=== PATIENT | female | born 1970 | race Caucasian/White ===

== ENCOUNTER 2020-12-15 19:29 | Observation (INO) ==
[2020-12-15 19:54] VITALS: BMI 43.0
[2020-12-15] MEDS ORDERED: TORADOL 15 MG VIAL IVP ONE (20:08)
--- NOTE | 2020-12-15 20:09 | DR.FBACK ---
HPI Time Seen Time Seen by Provider: 12/15/20 19:43 PCP Primary Care Physician: CHAN HPI Comment HPI Comment: 50 yo f w/ pmh htn presents w/ back pain x 4 days. States during sex she rotated her torso suddenly and since that time has been having lower lack pain, right sided, radiating to posterior thigh, sharp, constant, worse w/ rom of torso, min improvement with motrin. Seen at outside ED and had plain films which reportedly showed degenerative changes of the spine but no fx. Presents her for percistent pain. States she is now weak in her right leg. + urinary incontinance. No stool incontinance. No saddle parestesia. No f/c. No hx of ivda. Complaint Chief Complaint:: PT STATES" I WAS HAVING SEX ON SATURDAY AND I HURT MY BACK. I WENT TO MY PCP ON SATURDAY AND TO THE CHIROPACTOR SATURDAY AND TODAY I HAVE NOT SLEPT MORE THAN 4 HOURS IN THE LAST 3 DAYS. MY LEGS FEEL LIKE JELLO" Reviewed Nurses Notes Review: Yes Source History Provided: Patient Mode of Arrival Mode of Arrival: Ambulatory Timing Onset of Chief Complaint: 12/15/20 PMH PMH Past Medical History: Yes Past Medical History: Anxiety, Hypertension and Hypothyroidism Past Surgical History: Yes Surgical History: , Cholecystectomy and Hysterectomy Family History History of Family Medical Conditions: No Family Medical History: PR and Coronary Artery Disease Social History Type of Tobacco Use: None Does any household member use tobacco: No Alcohol Use: None Do you use any recreational Drugs:: No Lives With: Family Lives Where: Home Infectious screening In the last 2 months have you had wt loss of >10#?: NO Have you had fever, night sweats or hemotysis?: No Have you traveled outside the country in the last 6 months?: No Isolation: Standard ROS Review of Systems Constitutional: No Symptoms Reported Eyes: No Symptoms Reported ENTM: No Symptoms Reported Respiratoy: No Symptoms Reported Cardiovascular: No Symptoms Reported Gastrointestinal/Abdominal: No Symptoms Reported Genitourinary: No Symptoms Reported Neurological: No Symptoms Reported Musculoskeletal: Back Pain Integumentary: No Symptoms Reported Hematologic/Lymphatic: No Symptoms Reported Endocrine: No Symptoms Reported Psychiatric: No Symptoms Reported All Other Systems: Reviewed and Negative PE Vitals Vital Signs: Temp Pulse Resp BP BP Pulse Ox 12/15/20 20:34 18 12/15/20 20:33 167/88 12/15/20 19:34 36.4 C 90 18 205/98 97 11/26/20 18:30 142/65 General Limitations: No Limitations General Appearance: Alert and In No Apparent Distress Head Head Exam: Normal Inspection Eyes Eye exam: Normal Appearance ENT ENT Exam: Normal Exam Chest Chest Inspection: Normal Inspection Respiratory Respiratory Exam: Normal Lung Sounds Bilat Cardiovascular Cardiovascular Exam: Regular Rate and Normal Rhythm Abdominal Exam Abdominal Exam: Normal Inspection, Normal Bowel Sounds and Soft Genitourinary External Exam: Female: Deferred : Speculum Exam (Female): Deferred : Bimanual Exam (female): Deferred Extremities Extremities Exam: Normal Inspection Back Back Exam: Normal Inspection Neurological Neurological Exam: Alert and Oriented X3 Psychiatric Psychiatric Exam: Normal Affect and Normal Mood Skin Skin Exam: Warm, Dry, Intact and Normal Color Other Exam Other Exam: back: diffuse right sided paraspinal lumbar pain, no bony tenderness. 5/5 strength t/o LLE. slight weakness with knee flexion on right but extension strength normal. Sensation intact t/o bilateral lower extremities. 3+ patellar reflexes bilat. MDM Differential Diagnosis Differential Diagnosis: DJD, Fracture, Musculoskeletal Pain and Strain COURSE Treatment Treatment: 50 yo f w/ recent lower back injury presents w/ acute worsening of her back pain. 3+ patellar reflexes bilaterally. Faintly decreased strength in RLE. Normal sensation. Concerned she is complaining of a single episode of urinary incontinance today. No saddle anestesia on history. Given dose of decadron by pcp earlier this week, additional dose given this pm. Pain improved after alagesics. Will admit to observation for pain control and urgent mri in AM. 2209: discussed all details of case with Dr Gupta whom agrees with plan and will admit to observation for AM MRI of lumbar spine. Education/Counseling Education/Counseling: Patient and Family Educated On: Treatment, Diagnosis, Prognosis and Needs for Follow Up Opioid Opioid Risk Tool Age (Felice box if 16-45): No History of Preadolescent Sexual Abuse: No Total: 0 Total Score Risk Category: Low Risk Copyright: Davion YBARRA predicting aberrant behaviors Diagnosis Discharge Problem: Intractable low back pain Instructions Forms: Patient Portal Social Distancing
[2020-12-15] MEDS ORDERED: ATIVAN INJ 2 MG VIAL IVP ONE (20:19)
[2020-12-15] MEDS ORDERED: TORADOL 15 MG VIAL ONE (20:23)
[2020-12-15] MEDS ORDERED: ATIVAN INJ 2 MG VIAL ONE (20:24)
[2020-12-15] MEDS ORDERED: DECADRON INJ IVP ONE (20:29)
[2020-12-15] MEDS ORDERED: DECADRON INJ ONE (20:33)
[2020-12-15] MEDS: DECADRON INJ IVP ONE ×2 (20:40→20:42)
[2020-12-16] MEDS ORDERED: NORCO 7.5/325 MG TAB ONE (00:42)
[2020-12-16] MEDS: NORCO 7.5/325 MG TAB PO PRN ×4 (01:19→21:20)
[2020-12-16] MEDS: RESTORIL CAP 15 MG PO PRN ×2 (01:19→20:50)
[2020-12-16] MEDS ORDERED: DECADRON INJ IVP ONE (07:00)
[2020-12-16] MEDS ORDERED: MOTRIN TAB 800 MG PO PRN ×2 (08:52→10:10)
[2020-12-16] MEDS ORDERED: PriLOSEC PO SCH (09:00)
[2020-12-16 09:38] LABS: BASOPHILS # (AUTO) 0.1 X10^3/uL (0.0-0.1); BASOPHILS % (AUTO) 0.5 % (0.2-1.0); HEMATOCRIT 41.3 % (36.0-47.0); HEMOGLOBIN 14.2 g/dL (12.0-16.0); LYMPHOCYTES # (AUTO) 1.3 X10^3/uL (1.3-2.9); LYMPHOCYTES % (AUTO) 11.7 % (21.0-51.0); MEAN CORPUSCULAR HEMOGLOBIN 29.2 pg (27.0-34.0); MEAN CORPUSCULAR HGB CONC 34.3 g/dL (33.0-35.0); MEAN PLATELET VOLUME 7.8 fL (7.4-11.0); MONOCYTES # (AUTO) 0.2 x10^3/uL (0.3-0.8); MONOCYTES % (AUTO) 1.5 % (0.0-13.0); NEUTROPHILS # (AUTO) 9.5 x10^3/uL (2.2-4.8); NEUTROPHILS % (AUTO) 86.3 % (42.0-75.0); PLATELET COUNT 266 X10^3/uL (150.0-450.0); RED BLOOD COUNT 4.85 X10^6/uL (3.5-5.4); RED CELL DISTRIBUTION WIDTH 14.4 % (11.6-16.5)
[2020-12-16] MEDS: BUSPAR PO SCH ×3 (09:52→22:19)
[2020-12-16] MEDS: EFFEXOR XR 150 MG CAP 24-HR PO SCH (09:53)
[2020-12-16] MEDS: ZESTRIL TAB 10 MG PO SCH (09:53)
[2020-12-16] MEDS: SYNTHROID 175 mcg TAB PO SCH (09:53)
[2020-12-16 09:54] LABS: ALANINE AMINOTRANSFERASE 30 Units/L (12-78); ALKALINE PHOSPHATASE 79 Units/L (46-116); ASPARTATE AMINO TRANSFERASE 15 Units/L (15-37); BLOOD UREA NITROGEN 12 mg/dL (7-18); CALCIUM 9.2 mg/dL (8.5-10.1); CARBON DIOXIDE 26.1 mmol/L (21-32); CHLORIDE 103 mmol/L (98-107); COR NA(FOR HYPERGLY) 140 mmol/L (136-145); CREATININE 0.72 mg/dL (0.55-1.02); SODIUM 139 mmol/L (136-145); TOTAL PROTEIN 7.5 g/dL (6.4-8.2); eGFR NON BLACK RACES > 60 (>60)
[2020-12-16] MEDS ORDERED: VALIUM INJ IVP ONE (10:03)
[2020-12-16] MEDS ORDERED: NS 100 ML IV 100 ML IV ONE (10:17)
--- NOTE | 2020-12-16 10:53 | DR.H&P ---
H&P - History & Physical for Day of: H&P Date: 12/15/20 - Chief Complaint Chief Complaint: SEVERE LOWER BACK PAIN - History of Present Illness History of Present Illness: IS A 50 YEAR OLD PATIENT OF [facility]. SHE PRESENTED TO THE ER WITH COMPLAINTS OF SEVERE BACK PAIN THAT STARTED FOUR DAYS PRIOR TO ARRIVAL. SHE REPORTS ROTATING HER TORSO SUDDENLY WHILE HAVING SEX. SHE REPORTS THAT SINCE THEN, SHE HAS HAD SEVERE RIGHT SIDED LOWER BACK PAIN WITH RADIATION TO THE POSTERIOR THIGH. SHE ALSO REPORTS SEVERE WEAKNESS TO RIGHT LOWER EXTREMITY AND URINARY INCONTINENCE. SHE DENIES STOOL INCONTINENCE OR SADDLE PARESTHESIA. PAIN IS DESCRIBED CONSTANT, SHARP, AND WAS RATED AN 8/10 ON ARRIVAL TO THE ED. SHE ADMITS TO MILD IMPROVEMENT AFTER TAKING MOTRIN. SHE ALSO REPORTS NOT SLEEPING MORE THAN 4 HOURS IN THE LAST FOUR DAYS SINCE INJURY. PATIENT DOES ADMIT THAT A LUMBAR XRAY IN THE PAST, PRIOR TO INJURY, REVEALED DEGENERATIVE DISC DIDEASE. SHE DID SEE HER PCP EARLIER IN THE WEEK AND WAS GIVEN A DOSE OF DECADRON IM AND ORAL ANALGESICS. EXAMINATION REVEALED DIFFUSE RIGHT SIDED PARASPINOUS LUMBAR PAIN. SHE HAS 5/5 STRENGTH TO LLE BUT HAS WEAKNESS WITH KNEE FLEXION ON THE RIGHT LEG. EXTENSION STRENGTH IS NORMAL. 3+ PATELLAR REFLEXES BILATERALLY. NORMAL SENSATION IN LOWER EXTREMITIES NOTED. ON ARRIVAL TO THE ER, VITALS WERE 97.6-90-18-97%-205/98. SHE WAS GIVEN TORADOL 15MG IV X 1 DOSE, ATIVAN 1MG IV X 1 DOSE, AND DECADRON 4MG IV X 1 DOSE. SHE DENIED IMPROVEMENT IN SYMPTOMS AFTER ADMINISTRATION OF MEDICATIONS. SHE WAS ADMITTED TO THE HOSPITAL FOR FURTHER EVALUATION AND TREATMENT OF INTRACTABLE LOWER BACK PAIN. SHE WAS STARTED ON TORADOL 30MG IV Q6H, VALIUM 5MG PO BID, PEPCID 20MG IV BID, PROTONIX 40MG IV BID, LOVENOX 30MG SC BID, NORCO 7.5/325MG PO Q6H PRN, AND HER HOME MEDICATIONS WERE RESUMED. WE PLAN TO OBTAIN A LUMBAR SPINE MRI WITHOUT CONTRAST. PATIENT DID TEST POSITIVE FOR COVID-19 PRIOR TO ADMISSION. PATIENT ADMITS TO HAVING COVID-19 BACK IN SEPTEMBER. SHE HAS NO RESPIRATORY SYMPTOMS AT THIS TIME. WE WILL ALSO COLLECT A URINALYSIS. OTHERWISE, WE WILL FOLLOW UP WITH AM LABS AND CONTINUE TO MONITOR. TIME SPENT ON CLINICAL ASSESSMENT, REVIEWING LABS AND IMAGING, DECISION MAKING, AND DOCUMENTATION GREATER THAN 75 MINUTES. - Past Medical History Past Medical History: Anxiety, Depression, Hypertension, Hypothyroidism - Past Surgical History Surgical History: Cholecystectomy - Family History Family Medical History: [place], Coronary Artery Disease - Social History Type of Tobacco Use: None Does any household member use tobacco: No Alcohol Use: None - Medications Home Medications: No Known Drug Allergies [NKDA] Allergy (Verified 12/15/20 20:38) CONTINUE taking the following medications buspirone 10 mg PO TID 12/16/20 [History] cariprazine [Vraylar] 1.5 mg PO DAILYHS 12/16/20 [History] hydrochlorothiazide 25 mg PO DAILY 12/16/20 [History] ibuprofen 800 mg PO Q8-10H 12/16/20 [History] levothyroxine 175 mcg PO DAILY 12/16/20 [History] lisinopril 10 mg PO DAILY 12/16/20 [History] omeprazole 20 mg PO DAILY 12/16/20 [History] topiramate [Trokendi XR] 50 mg PO DAILY 12/16/20 [History] venlafaxine 150 mg PO DAILY 12/16/20 [History] - Review of Systems Constitutional: Weakness Eyes: No Symptoms Reported ENT: No Symptoms Reported Respiratory: No Symptoms Reported Cardiovascular: No Symptoms Reported Gastrointestinal: No Symptoms Reported Genitourinary: No Symptoms Reported Musculoskeletal: See HPI, Back Pain Skin: No Symptoms Reported Neurological: Weakness - Physical Exam Vital Signs: Temperature 97.9 F Pulse Rate [Left Radial] 84 Pulse Rate 86 Respiratory Rate 24 Blood Pressure [Left Arm] 136/70 Blood Pressure 109/59 O2 Sat by Pulse Oximetry 94 Oriented: Normal Eyes: Normal Ear: Normal Nose: Normal Throat: Normal Respiratory: Clear Throughout Cardiovascular: Normal : Normal Auscultation: Bowel Sounds: Normal Palpation: Normal Tenderness: Normal Skin: Normal Musculoskeletal: Right, Back:Lumbar, Sensory Deficit Psychiatric: Normal Mood Description: Calm Affect: Normal Speech Pattern: Clear - Assessment/Plan (1) Intractable low back pain Status: Acute Plan: ADMIT, LUMBAR SPINE MRI, TORADOL 30MG IV Q6H, VALIUM 5MG PO BID, PEPCID 20MG IV BID, PROTONIX 40MG IV BID, LOVENOX 30MG SC BID, NORCO 7.5/325MG PO Q6H PRN, RESUME HOME MEDICATIONS (2) COVID-19 Status: Acute (3) HTN (hypertension) Qualifiers: Hypertension type: essential hypertension Qualified Code(s): I10 - Essential (primary) hypertension Status: Chronic - Allergies Allergies/Adverse Reactions: Allergies Allergy/AdvReac Type Severity Reaction Status Date / Time No Known Drug Allergies Allergy Verified 12/15/20 20:38 [NKDA]
[2020-12-16] MEDS: LOVENOX INJ 30 MG SYR SC SCH ×2 (10:59→20:49)
[2020-12-16] MEDS: PROTONIX INJ 40 MG VIAL IVP SCH ×2 (11:00→20:48)
[2020-12-16] MEDS ORDERED: MOTRIN TAB 800 MG PO SCH (11:00)
[2020-12-16] MEDS: PEPCID 20 MG IV PREMIX* 20 MG/50 ML BAG IV SCH ×2 (11:00→20:48)
[2020-12-16] MEDS ORDERED: VALIUM INJ IM NR (11:00)
--- NOTE | 2020-12-16 11:58 | RAD ---
HISTORYINTRACTABLE LOWER BACK PAINSTUDYX-ray lumbar spine five viewsCOMPARISONNoneFINDINGSNo scoliosis. L5 pars defects are seen with slight grade 1 anterolisthesis of L5 on S1. Mild arthritic facet changes are seen in the lower lumbar spine. No compression fracture or disc space narrowing is seen.IMPRESSIONL5 pars defects and minimal L5-S1 spondylolisthesis.Electronically signed by: Nba Mccarthy (Dec 16, 2020 11:56:31)
[2020-12-16] MEDS: TORADOL 30 MG VIAL IVP SCH ×3 (12:03→22:19)
[2020-12-16 12:22] LABS: BILIRUBIN,URINE NEGATIVE (NEGATIVE); BLOOD/HEMOGLOBIN,URINE NEGATIVE (NEGATIVE); GLUCOSE, URINE NEGATIVE (NEGATIVE); KETONES,URINE 2+ (NEGATIVE); LEUKOCYTE ESTERASE ,URINE NEGATIVE (NEGATIVE); NITRITES,URINE NEGATIVE (NEGATIVE); PROTEIN,URINE NEGATIVE (NEGATIVE); UROBILINOGEN,URINE NORMAL (NORMAL)
[2020-12-16 12:24] LABS: APPEARANCE,URINE HAZY (CLEAR); COLOR,URINE YELLOW (YELLOW)
[2020-12-16] MEDS: [UNRECOGNIZED DRUG - OTHER] PO SCH (14:00)
[2020-12-16] MEDS: TOPIRAMATE 50 MG PO SCH (14:00)
[2020-12-16] MEDS: VALIUM PO SCH (14:54)
--- NOTE | 2020-12-16 16:27 | MRI ---
HISTORYLOW BACK PAIN, R/O CAUDA EQUINASTUDYMRI L SPINE W/O CONTRASTCOMPARISONLumbar spine series dated same day.TECHNIQUEMultiplanar multisequence MRI of the lumbar spine was obtained utilizing standard departmental protocol.FINDINGSQuestion of bilateral L5 pars defects without anterior listhesis. No acute fracture. 2.3 cm L3 vertebral body hemangioma. Remaining bone marrow signal is unremarkable. No significant disc desiccation or disc height loss. 2.3 cm benign-appearing cystic lesion within the visualized left lower pelvis (series 701, image 40). This may represent a simple ovarian cyst. Remaining soft tissue structures are unremarkable. The conus medullaris terminates L1-L2.T12--L1: No significant disc bulge, neural foraminal narrowing, or spinal canal stenosis.L1 -- L2: No significant disc bulge, neural foraminal narrowing, or spinal canal stenosis.L2 -- L3: No significant disc bulge, neural foraminal narrowing, or spinal canal stenosis.L3 -- L4: No significant disc bulge, neural foraminal narrowing, or spinal canal stenosis.L4 -- L5: Broad-based disc bulge that extends into the lateral recesses with associated severe facet/ligamentum flavum hypertrophy causing bilateral [id number] neural foraminal narrowing. No significant spinal canal stenosis.L5 -- S1:Broad-based disc bulge that extends into the lateral recesses with associated severe facet/ligamentum flavum hypertrophy causing mild bilateral neural foraminal narrowing. No significant spinal canal stenosis.IMPRESSIONOne. Multilevel degenerative changes of the lumbar spine as above. No MRI evidence to suggest cauda equina.Two. Question of a 2.3 cm left ovarian simple appearing cyst. Recommend dedicated pelvic ultrasound on outpatient basis for further characterization.Electronically signed by: AUREA WHITING (Dec 16, 2020 16:25:02)
[2020-12-16] MEDS: PATIENT'S HOME MEDICATION (Cariprazine [Vraylar] 1.5 mg capsule) PO SCH (20:48)
[2020-12-17] MEDS: TORADOL 30 MG VIAL IVP SCH ×4 (04:47→23:35)
[2020-12-17 04:54] LABS: BASOPHILS % (AUTO) 0.4 % (0.2-1.0); EOSINOPHILS % (AUTO) 0.2 % (0.9-2.9); HEMATOCRIT 38.3 % (36.0-47.0); HEMOGLOBIN 12.9 g/dL (12.0-16.0); LYMPHOCYTES # (AUTO) 2.2 X10^3/uL (1.3-2.9); LYMPHOCYTES % (AUTO) 17.1 % (21.0-51.0); MEAN CORPUSCULAR HEMOGLOBIN 28.9 pg (27.0-34.0); MEAN CORPUSCULAR HGB CONC 33.8 g/dL (33.0-35.0); MEAN CORPUSCULAR VOLUME 85.5 fL (80.0-100.0); MEAN PLATELET VOLUME 7.6 fL (7.4-11.0); MONOCYTES % (AUTO) 7.8 % (0.0-13.0); NEUTROPHILS # (AUTO) 9.6 x10^3/uL (2.2-4.8); NEUTROPHILS % (AUTO) 74.5 % (42.0-75.0); PLATELET COUNT 269 X10^3/uL (150.0-450.0); RED BLOOD COUNT 4.48 X10^6/uL (3.5-5.4); RED CELL DISTRIBUTION WIDTH 14.4 % (11.6-16.5); WHITE BLOOD COUNT 12.9 X10^3/uL (3.6-10.0)
[2020-12-17 05:00] LABS: ALANINE AMINOTRANSFERASE 28 Units/L (12-78); ALBUMIN 3.2 g/dL (3.4-5.0); ALKALINE PHOSPHATASE 68 Units/L (46-116); ASPARTATE AMINO TRANSFERASE 13 Units/L (15-37); BLOOD UREA NITROGEN 17 mg/dL (7-18); CALCIUM 8.6 mg/dL (8.5-10.1); CARBON DIOXIDE 29.6 mmol/L (21-32); CHLORIDE 106 mmol/L (98-107); COR CA(FOR HYPOALB) 9.2 mg/dL (8.5-10.1); COR NA(FOR HYPERGLY) 141 mmol/L (136-145); CREATININE 0.84 mg/dL (0.55-1.02); SODIUM 141 mmol/L (136-145); TOTAL PROTEIN 6.1 g/dL (6.4-8.2); eGFR NON BLACK RACES > 60 (>60)
[2020-12-17] MEDS: BUSPAR PO SCH ×3 (05:16→21:32)
[2020-12-17] MEDS: VALIUM PO SCH ×2 (05:16→13:55)
[2020-12-17] MEDS: NORCO 7.5/325 MG TAB PO PRN (07:50)
[2020-12-17] MEDS: TOPIRAMATE 50 MG PO SCH (08:13)
[2020-12-17] MEDS: [UNRECOGNIZED DRUG - OTHER] PO SCH (08:13)
[2020-12-17] MEDS: LOVENOX INJ 30 MG SYR SC SCH ×2 (08:14→20:18)
[2020-12-17] MEDS: EFFEXOR XR 150 MG CAP 24-HR PO SCH (08:14)
[2020-12-17] MEDS: ZESTRIL TAB 10 MG PO SCH (08:14)
[2020-12-17] MEDS: PEPCID 20 MG IV PREMIX* 20 MG/50 ML BAG IV SCH ×2 (08:14→20:19)
[2020-12-17] MEDS: PROTONIX INJ 40 MG VIAL IVP SCH ×2 (08:14→20:19)
[2020-12-17] MEDS: SYNTHROID 175 mcg TAB PO SCH (08:16)
[2020-12-17] MEDS ORDERED: SOLU-Medrol 125 MG VIAL IVP ONE (09:53)
--- NOTE | 2020-12-17 09:58 | PCM.PROG ---
Progress Note Progress Note for Day of Date of Exam: 12/17/20 Subjective Subjective: Pt is a 50 year old female admitted for intractable low back pain. This morning patient reports some improvement in her symptoms, she states the hydrocodone has been helping but does make her feel sleepy. Pain returns when medication wears off. Strength has improved in right lower extremity. Pt had MRI Lumbar yesterday that revealed: 1.Multilevel degenerative changes of the lumbar spine as above. No MRI evidence to suggest cauda equina. 2.Question of a 2.3 cm left ovarian simple appearing cyst. Recommend dedicated pelvic ultrasound on outpatient basis for further characterization. Labs: Wbc 12.9, Hgb 12.9, Plt 269, Na 141, K 3.8, Creatinine 0.84, Glucose 116. Discussed results with kieran gomez. She will need to see her pcp after discharge for referral to neurosurgery outpatient and based on MRI findings of ovarian cyst will also need pelvic u/s outpatient. Will give IV Solumedrol 80mg x1 today. Decrease norco to 5mg Q4H prn. Add gabapentin at night. Encourage out of bed and ambulation as tolerated. Past Medical Family Social History Past Med/Fam/Surg Hx: No changes since H&P Allergies: Allergies No Known Drug Allergies [NKDA] Allergy (Verified 12/15/20 20:38) Review of Systems ROS: No change since H&P Vital Signs and I&O's Vital Signs: Temperature 97.9 F Pulse Rate [Left Radial] 84 Pulse Rate 72 Respiratory Rate 20 Blood Pressure [Left Arm] 136/70 Blood Pressure 118/81 O2 Sat by Pulse Oximetry 100 Intake and Output: Intake & Output 12/14/20 12/15/20 12/16/20 12/17/20 23:59 23:59 23:59 23:59 Intake Total 1137 / 1137 250 / 250 Balance 1137 / 1137 250 / 250 Physical Exam Oriented: Normal Eyes: Normal Ear: Normal Nose: Normal Throat: Normal Respiratory: Normal Cardiovascular: Normal : Normal Auscultation: Bowel Sounds: Normal Tenderness: Normal Skin: Normal Musculoskeletal: Right, Back:Lumbar and Sensory Deficit Psychiatric: Normal Mood Description: Calm Affect: Normal Speech Pattern: Clear and Appropriate Laboratory and Diagnostics Result Diagrams: 12/17/20 04:30 12/17/20 04:30 Labs: Laboratory WBC 12.9 X10^3/uL (3.6-10.0) H 12/17/20 04:30 RBC 4.48 X10^6/uL (3.5-5.4) 12/17/20 04:30 Hgb 12.9 g/dL (12.0-16.0) 12/17/20 04:30 Hct 38.3 % (36.0-47.0) 12/17/20 04:30 MCV 85.5 fL (80.0-100.0) 12/17/20 04:30 MCH 28.9 pg (27.0-34.0) 12/17/20 04:30 MCHC 33.8 g/dL (33.0-35.0) 12/17/20 04:30 RDW 14.4 % (11.6-16.5) 12/17/20 04:30 Plt Count 269 X10^3/uL (150.0-450.0) 12/17/20 04:30 MPV 7.6 fL (7.4-11.0) 12/17/20 04:30 Neut % (Auto) 74.5 % (42.0-75.0) 12/17/20 04:30 Lymph % (Auto) 17.1 % (21.0-51.0) L 12/17/20 04:30 [place] % (Auto) 7.8 % (0.0-13.0) 12/17/20 04:30 Eos % (Auto) 0.2 % (0.9-2.9) L 12/17/20 04:30 Baso % (Auto) 0.4 % (0.2-1.0) 12/17/20 04:30 Neut # (Auto) 9.6 x10^3/uL (2.2-4.8) H 12/17/20 04:30 Lymph # (Auto) 2.2 X10^3/uL (1.3-2.9) 12/17/20 04:30 [place] # (Auto) 1.0 x10^3/uL (0.3-0.8) H 12/17/20 04:30 Eos # (Auto) 0.0 x10^3/uL (0.0-0.2) 12/17/20 04:30 Baso # (Auto) 0.0 X10^3/uL (0.0-0.1) 12/17/20 04:30 Absolute Nucleated RBC 0.0 /100WBC 12/17/20 04:30 D-Dimer 0.19 ug/ml (0.0-0.57) 12/16/20 08:59 Sodium 141 mmol/L (136-145) 12/17/20 04:30 Corrected Sodium 141 mmol/L (136-145) 12/17/20 04:30 Potassium 3.8 mmol/L (3.5-5.1) 12/17/20 04:30 Chloride 106 mmol/L (98-107) 12/17/20 04:30 Carbon Dioxide 29.6 mmol/L (21-32) 12/17/20 04:30 BUN 17 mg/dL (7-18) 12/17/20 04:30 Creatinine 0.84 mg/dL (0.55-1.02) 12/17/20 04:30 Est GFR (MDRD) Af Amer > 60 (>60) 12/17/20 04:30 Est GFR (MDRD) Non-Af > 60 (>60) 12/17/20 04:30 Glucose 116 mg/dL (65-99) H 12/17/20 04:30 Calcium 8.6 mg/dL (8.5-10.1) 12/17/20 04:30 Corrected Calcium 9.2 mg/dL (8.5-10.1) 12/17/20 04:30 Ferritin 78 ng/mL (8-252) 12/16/20 08:59 Total Bilirubin 0.20 mg/dL (0.2-1.0) 12/17/20 04:30 AST 13 Units/L (15-37) L 12/17/20 04:30 ALT 28 Units/L (12-78) 12/17/20 04:30 Alkaline Phosphatase 68 Units/L (46-116) 12/17/20 04:30 C-Reactive Protein < 0.50 mg/L (0-3.0) 12/16/20 08:59 B-Natriuretic Peptide 7.0 pg/mL (0-79) 12/16/20 08:59 Total Protein 6.1 g/dL (6.4-8.2) L 12/17/20 04:30 Albumin 3.2 g/dL (3.4-5.0) L 12/17/20 04:30 Globulin 2.9 g/dL (2.5-4.5) 12/17/20 04:30 Albumin/Globulin Ratio 1.1 Ratio (1.1-2.1) 12/17/20 04:30 Specimen Type Clean catch urine 12/16/20 11:50 Urine Color Yellow (YELLOW) 12/16/20 11:50 Urine Appearance Hazy (CLEAR) 12/16/20 11:50 Urine pH 5.0 (5.0 - 8.0) 12/16/20 11:50 Ur Specific [place] 1.025 (1.000-1.030) 12/16/20 11:50 Urine Protein Negative (NEGATIVE) 12/16/20 11:50 Urine Glucose (UA) Negative (NEGATIVE) 12/16/20 11:50 Urine Ketones 2+ (NEGATIVE) 12/16/20 11:50 Urine Occult Blood Negative (NEGATIVE) 12/16/20 11:50 Urine Nitrite Negative (NEGATIVE) 12/16/20 11:50 Urine Bilirubin Negative (NEGATIVE) 12/16/20 11:50 Urine Urobilinogen Normal (NORMAL) 12/16/20 11:50 Ur Leukocyte Esterase Negative (NEGATIVE) 12/16/20 11:50 SARS CoV-2 RNA Rapid ITZEL Positive (NEGATIVE) A 12/15/20 22:50 Plan (1) Intractable low back pain: Status: Acute Plan: ADMIT, LUMBAR SPINE MRI, TORADOL 30MG IV Q6H, VALIUM 5MG PO BID, PEPCID 20MG IV BID, PROTONIX 40MG IV BID, LOVENOX 30MG SC BID, NORCO 5/325MG PO Q6H PRN, RESUME HOME MEDICATIONS (2) COVID-19: Status: Acute (3) HTN (hypertension): Status: Chronic Qualifiers: Hypertension type: essential hypertension Qualified Code(s): I10 - Essential (primary) hypertension
[2020-12-17] MEDS: NORCO 5/325 MG TAB PO PRN ×3 (13:55→21:52)
[2020-12-17] MEDS ORDERED: NEURONTIN CAP 100 MG ONE (19:24)
[2020-12-17] MEDS: PATIENT'S HOME MEDICATION (Cariprazine [Vraylar] 1.5 mg capsule) PO SCH (20:18)
[2020-12-17] MEDS ORDERED: NEURONTIN CAP 100 MG PO SCH (21:00)
[2020-12-17] MEDS: RESTORIL CAP 15 MG PO PRN (21:32)
[2020-12-18] MEDS: NORCO 5/325 MG TAB PO PRN ×2 (01:59→06:33)
[2020-12-18] MEDS: TORADOL 30 MG VIAL IVP SCH (04:31)
[2020-12-18 04:44] LABS: BASOPHILS % (AUTO) 0.3 % (0.2-1.0); HEMATOCRIT 37.9 % (36.0-47.0); HEMOGLOBIN 12.7 g/dL (12.0-16.0); LYMPHOCYTES # (AUTO) 1.9 X10^3/uL (1.3-2.9); LYMPHOCYTES % (AUTO) 16.6 % (21.0-51.0); MEAN CORPUSCULAR HEMOGLOBIN 28.9 pg (27.0-34.0); MEAN CORPUSCULAR HGB CONC 33.5 g/dL (33.0-35.0); MEAN CORPUSCULAR VOLUME 86.4 fL (80.0-100.0); MEAN PLATELET VOLUME 7.7 fL (7.4-11.0); MONOCYTES # (AUTO) 0.8 x10^3/uL (0.3-0.8); MONOCYTES % (AUTO) 7.1 % (0.0-13.0); NEUTROPHILS # (AUTO) 8.7 x10^3/uL (2.2-4.8); PLATELET COUNT 225 X10^3/uL (150.0-450.0); RED BLOOD COUNT 4.39 X10^6/uL (3.5-5.4); RED CELL DISTRIBUTION WIDTH 14.8 % (11.6-16.5); WHITE BLOOD COUNT 11.5 X10^3/uL (3.6-10.0)
[2020-12-18 05:01] LABS: ALANINE AMINOTRANSFERASE 25 Units/L (12-78); ALKALINE PHOSPHATASE 61 Units/L (46-116); ASPARTATE AMINO TRANSFERASE 8 Units/L (15-37); BLOOD UREA NITROGEN 16 mg/dL (7-18); CALCIUM 8.2 mg/dL (8.5-10.1); CARBON DIOXIDE 29.7 mmol/L (21-32); CHLORIDE 108 mmol/L (98-107); CREATININE 0.83 mg/dL (0.55-1.02); SODIUM 144 mmol/L (136-145); TOTAL PROTEIN 5.9 g/dL (6.4-8.2); eGFR NON BLACK RACES > 60 (>60)
[2020-12-18] MEDS: BUSPAR PO SCH (05:17)
[2020-12-18] MEDS: VALIUM PO SCH (05:18)
[2020-12-18] MEDS: ZESTRIL TAB 10 MG PO SCH (08:35)
[2020-12-18] MEDS: LOVENOX INJ 30 MG SYR SC SCH (08:36)
[2020-12-18] MEDS: SYNTHROID 175 mcg TAB PO SCH (08:36)
[2020-12-18] MEDS: PEPCID 20 MG IV PREMIX* 20 MG/50 ML BAG IV SCH (08:36)
[2020-12-18] MEDS: TOPIRAMATE 50 MG PO SCH (08:37)
[2020-12-18] MEDS: EFFEXOR XR 150 MG CAP 24-HR PO SCH (08:37)
[2020-12-18] MEDS: [UNRECOGNIZED DRUG - OTHER] PO SCH (08:37)
[2020-12-18] MEDS: PROTONIX INJ 40 MG VIAL IVP SCH (08:37)
[2020-12-18] MEDS ORDERED: NORCO 7.5/325 MG TAB PO PRN (09:46)
--- NOTE | 2020-12-18 09:54 | W.DIS.FURT ---
Summary of Discharge Discharge Summary of Date Date of Exam: 12/18/20 Admission Date Date of Admission: 12/15/20 Admission Diagnosis Patient Problems (Updated 12/18/20 @ 09:53 by Ayden May) HTN (hypertension) (Chronic) I10 Intractable low back pain (Acute) M54.5 COVID-19 (Acute) U07.1 Hospital Course: Pt is a 50 year old female admitted for intractable low back pain. During hospital course pt had MRI Lumbar that revealed areas of severe DDD: 1.Multilevel degenerative changes of the lumbar spine as above. No MRI evidence to suggest cauda equina. 2.Question of a 2.3 cm left ovarian simple appearing cyst. Recommend dedicated pelvic ultrasound on outpatient basis for further characterization. Pt was given IV steroids and started on hydrocodone that helped relieve pain. Labs: Wbc 11.5, Hgb 12.7, Plt 225, Na 144, K 3.7, Creatinine 0.83, Glucose 110. Discussed results with patient. She will need to see her pcp after discharge for referral to neurosurgery outpatient and based on MRI findings of ovarian cyst will also need pelvic u/s outpatient. Rx norco add gabapentin. Pt instructed to follow up with pcp in 3-5 days. Vital Signs: Vital Signs (72 hours) 12/15/20 19:34 12/15/20 20:33 12/15/20 20:34 Temperature 97.6 F Pulse Rate 90 Pulse Rate [Left Radial] Respiratory Rate 18 18 Blood Pressure 205/98 Blood Pressure [Left Arm] 167/88 O2 Sat by Pulse Oximetry 97 12/15/20 21:04 12/15/20 23:46 12/16/20 00:10 Temperature 97.6 F 98.2 F Pulse Rate 92 H Pulse Rate [Left Radial] 84 Respiratory Rate 18 20 22 Blood Pressure 143/73 Blood Pressure [Left Arm] 136/70 O2 Sat by Pulse Oximetry 95 97 12/16/20 01:00 12/16/20 01:19 12/16/20 02:14 Temperature Pulse Rate 94 H Pulse Rate [Left Radial] Respiratory Rate 20 20 18 Blood Pressure 134/72 Blood Pressure [Left Arm] O2 Sat by Pulse Oximetry 94 L 12/16/20 04:00 12/16/20 08:00 12/16/20 09:00 Temperature 97.9 F 97.7 F Pulse Rate 86 100 H Pulse Rate [Left Radial] Respiratory Rate 16 28 H 24 Blood Pressure 109/59 140/80 Blood Pressure [Left Arm] O2 Sat by Pulse Oximetry 94 L 98 12/16/20 09:54 12/16/20 10:54 12/16/20 12:00 Temperature 97.8 F Pulse Rate 100 H Pulse Rate [Left Radial] Respiratory Rate 24 22 24 Blood Pressure 130/69 Blood Pressure [Left Arm] O2 Sat by Pulse Oximetry 98 12/16/20 12:03 12/16/20 12:33 12/16/20 15:50 Temperature Pulse Rate Pulse Rate [Left Radial] Respiratory Rate 24 24 18 Blood Pressure Blood Pressure [Left Arm] O2 Sat by Pulse Oximetry 12/16/20 16:00 12/16/20 16:50 12/16/20 17:34 Temperature 97.8 F Pulse Rate 100 H Pulse Rate [Left Radial] Respiratory Rate 24 18 22 Blood Pressure 145/76 Blood Pressure [Left Arm] O2 Sat by Pulse Oximetry 98 12/16/20 18:04 12/16/20 20:00 12/16/20 21:20 Temperature 97.7 F Pulse Rate 94 H Pulse Rate [Left Radial] Respiratory Rate 18 22 18 Blood Pressure 154/62 Blood Pressure [Left Arm] O2 Sat by Pulse Oximetry 95 12/16/20 22:19 12/16/20 22:49 12/17/20 00:00 Temperature 97.8 F Pulse Rate 82 Pulse Rate [Left Radial] Respiratory Rate 20 20 20 Blood Pressure 123/58 Blood Pressure [Left Arm] O2 Sat by Pulse Oximetry 98 12/17/20 04:00 12/17/20 04:47 12/17/20 05:15 Temperature 97.9 F Pulse Rate 72 Pulse Rate [Left Radial] Respiratory Rate 20 20 20 Blood Pressure 118/81 Blood Pressure [Left Arm] O2 Sat by Pulse Oximetry 100 12/17/20 07:50 12/17/20 08:00 12/17/20 08:50 Temperature 97.8 F Pulse Rate 72 Pulse Rate [Left Radial] Respiratory Rate 20 20 20 Blood Pressure 118/67 Blood Pressure [Left Arm] O2 Sat by Pulse Oximetry 99 12/17/20 10:55 12/17/20 11:25 12/17/20 12:00 Temperature 98.0 F Pulse Rate 82 Pulse Rate [Left Radial] Respiratory Rate 20 20 22 Blood Pressure 136/59 Blood Pressure [Left Arm] O2 Sat by Pulse Oximetry 96 12/17/20 13:55 12/17/20 14:55 12/17/20 16:00 Temperature 97.9 F Pulse Rate 84 Pulse Rate [Left Radial] Respiratory Rate 20 20 21 Blood Pressure 132/63 Blood Pressure [Left Arm] O2 Sat by Pulse Oximetry 96 12/17/20 16:30 12/17/20 17:00 12/17/20 18:08 Temperature Pulse Rate Pulse Rate [Left Radial] Respiratory Rate 20 20 20 Blood Pressure Blood Pressure [Left Arm] O2 Sat by Pulse Oximetry 12/17/20 19:08 12/17/20 19:59 12/17/20 20:38 Temperature 97.7 F Pulse Rate 65 76 Pulse Rate [Left Radial] Respiratory Rate 20 24 Blood Pressure 118/62 Blood Pressure [Left Arm] O2 Sat by Pulse Oximetry 97 98 12/17/20 21:52 12/17/20 22:52 12/17/20 23:35 Temperature Pulse Rate Pulse Rate [Left Radial] Respiratory Rate 18 18 18 Blood Pressure Blood Pressure [Left Arm] O2 Sat by Pulse Oximetry 12/18/20 00:00 12/18/20 00:05 12/18/20 01:59 Temperature 97.9 F Pulse Rate 61 Pulse Rate [Left Radial] Respiratory Rate 20 20 18 Blood Pressure 118/59 Blood Pressure [Left Arm] O2 Sat by Pulse Oximetry 95 12/18/20 02:59 12/18/20 04:00 12/18/20 04:31 Temperature 97.9 F Pulse Rate 59 L Pulse Rate [Left Radial] Respiratory Rate 16 16 18 Blood Pressure 110/57 Blood Pressure [Left Arm] O2 Sat by Pulse Oximetry 99 12/18/20 05:01 12/18/20 06:33 12/18/20 07:33 Temperature Pulse Rate Pulse Rate [Left Radial] Respiratory Rate 16 18 20 Blood Pressure Blood Pressure [Left Arm] O2 Sat by Pulse Oximetry Labs: Laboratory Last Values WBC 11.5 X10^3/uL (3.6-10.0) H 12/18/20 04:25 RBC 4.39 X10^6/uL (3.5-5.4) 12/18/20 04:25 Hgb 12.7 g/dL (12.0-16.0) 12/18/20 04:25 Hct 37.9 % (36.0-47.0) 12/18/20 04:25 MCV 86.4 fL (80.0-100.0) 12/18/20 04:25 MCH 28.9 pg (27.0-34.0) 12/18/20 04:25 MCHC 33.5 g/dL (33.0-35.0) 12/18/20 04:25 RDW 14.8 % (11.6-16.5) 12/18/20 04:25 Plt Count 225 X10^3/uL (150.0-450.0) 12/18/20 04:25 MPV 7.7 fL (7.4-11.0) 12/18/20 04:25 Neut % (Auto) 76.0 % (42.0-75.0) H 12/18/20 04:25 Lymph % (Auto) 16.6 % (21.0-51.0) L 12/18/20 04:25 [place] % (Auto) 7.1 % (0.0-13.0) 12/18/20 04:25 Eos % (Auto) 0.0 % (0.9-2.9) L 12/18/20 04:25 Baso % (Auto) 0.3 % (0.2-1.0) 12/18/20 04:25 Neut # (Auto) 8.7 x10^3/uL (2.2-4.8) H 12/18/20 04:25 Lymph # (Auto) 1.9 X10^3/uL (1.3-2.9) 12/18/20 04:25 [place] # (Auto) 0.8 x10^3/uL (0.3-0.8) 12/18/20 04:25 Eos # (Auto) 0.0 x10^3/uL (0.0-0.2) 12/18/20 04:25 Baso # (Auto) 0.0 X10^3/uL (0.0-0.1) 12/18/20 04:25 Absolute Nucleated RBC 0.0 /100WBC 12/18/20 04:25 D-Dimer 0.19 ug/ml (0.0-0.57) 12/16/20 08:59 Sodium 144 mmol/L (136-145) 12/18/20 04:25 Corrected Sodium TNP 12/18/20 04:25 Potassium 3.7 mmol/L (3.5-5.1) 12/18/20 04:25 Chloride 108 mmol/L (98-107) H 12/18/20 04:25 Carbon Dioxide 29.7 mmol/L (21-32) 12/18/20 04:25 BUN 16 mg/dL (7-18) 12/18/20 04:25 Creatinine 0.83 mg/dL (0.55-1.02) 12/18/20 04:25 Est GFR (MDRD) Af Amer > 60 (>60) 12/18/20 04:25 Est GFR (MDRD) Non-Af > 60 (>60) 12/18/20 04:25 Glucose 110 mg/dL (65-99) H 12/18/20 04:25 Calcium 8.2 mg/dL (8.5-10.1) L 12/18/20 04:25 Corrected Calcium 9.0 mg/dL (8.5-10.1) 12/18/20 04:25 Ferritin 78 ng/mL (8-252) 12/16/20 08:59 Total Bilirubin 0.20 mg/dL (0.2-1.0) 12/18/20 04:25 AST 8 Units/L (15-37) L 12/18/20 04:25 ALT 25 Units/L (12-78) 12/18/20 04:25 Alkaline Phosphatase 61 Units/L (46-116) 12/18/20 04:25 C-Reactive Protein < 0.50 mg/L (0-3.0) 12/16/20 08:59 B-Natriuretic Peptide 7.0 pg/mL (0-79) 12/16/20 08:59 Total Protein 5.9 g/dL (6.4-8.2) L 12/18/20 04:25 Albumin 3.0 g/dL (3.4-5.0) L 12/18/20 04:25 Globulin 2.9 g/dL (2.5-4.5) 12/18/20 04:25 Albumin/Globulin Ratio 1.0 Ratio (1.1-2.1) L 12/18/20 04:25 Specimen Type Clean catch urine 12/16/20 11:50 Urine Color Yellow (YELLOW) 12/16/20 11:50 Urine Appearance Hazy (CLEAR) 12/16/20 11:50 Urine pH 5.0 (5.0 - 8.0) 12/16/20 11:50 Ur Specific [place] 1.025 (1.000-1.030) 12/16/20 11:50 Urine Protein Negative (NEGATIVE) 12/16/20 11:50 Urine Glucose (UA) Negative (NEGATIVE) 12/16/20 11:50 Urine Ketones 2+ (NEGATIVE) 12/16/20 11:50 Urine Occult Blood Negative (NEGATIVE) 12/16/20 11:50 Urine Nitrite Negative (NEGATIVE) 12/16/20 11:50 Urine Bilirubin Negative (NEGATIVE) 12/16/20 11:50 Urine Urobilinogen Normal (NORMAL) 12/16/20 11:50 Ur Leukocyte Esterase Negative (NEGATIVE) 12/16/20 11:50 SARS CoV-2 RNA Rapid ITZEL Positive (NEGATIVE) A 12/15/20 22:50 Reason For Visit: INTRACTABLE BACK PAIN Discharge Date Discharge Date: 12/18/20 Discharge Diagnosis All Active Problems (Updated 12/18/20 @ 09:53 by Ayden May) DDD (degenerative disc disease), lumbosacral (Acute) Ovarian cyst (Acute) HTN (hypertension) (Chronic) Neck pain (Acute) Headache (Acute) Intractable low back pain (Acute) COVID-19 (Acute) Plan of Treatment: Continue with present treatment and follow up plan. Pt is to keep follow up appointment as instructed and take medications as ordered. Discharge Medications Discharge Medications: No Known Drug Allergies [NKDA] Allergy (Verified 12/15/20 20:38) CONTINUE taking the following medications Trokendi XR 50 mg PO DAILY 12/16/20 [History] Vraylar 1.5 mg PO DAILYHS 12/16/20 [History] amlodipine 10 mg PO DAILY 12/16/20 [History] buspirone 10 mg PO TID 12/16/20 [History] hydrochlorothiazide 25 mg PO DAILY 12/16/20 [History] ibuprofen 800 mg PO Q8-10H 12/16/20 [History] levothyroxine 175 mcg PO DAILY 12/16/20 [History] lisinopril 10 mg PO DAILY 12/16/20 [History] omeprazole 20 mg PO BID 12/16/20 [History] venlafaxine 150 mg PO DAILY 12/16/20 [History] New Prescriptions gabapentin 100 mg PO HS #30 cap 12/18/20 [Rx] hydrocodone-acetaminophen 1 tab PO Q8H PRN 10 Days #30 tab MDD 3 tablets 12/18/20 [Rx] temazepam 15 mg PO HS PRN 30 Days #30 cap MDD 1 tab 12/18/20 [Rx] Follow up and Referral Follow Up: 1 Week Discharge Disposition Discharge Disposition: Home Discharge Condition: Stable Discharge Plan Discharge Plan Hospital Course: Pt is a 50 year old female admitted for intractable low back pain. During hospital course pt had MRI Lumbar that revealed areas of severe DDD: 1.Multilevel degenerative changes of the lumbar spine as above. No MRI evidence to suggest cauda equina. 2.Question of a 2.3 cm left ovarian simple appearing cyst. Recommend dedicated pelvic ultrasound on outpatient basis for further characterization. Pt was given IV steroids and started on hydrocodone that helped relieve pain. Labs: Wbc 11.5, Hgb 12.7, Plt 225, Na 144, K 3.7, Creatinine 0.83, Glucose 110. Discussed results with patient. She will need to see her pcp after discharge for referral to neurosurgery outpatient and based on MRI findings of ovarian cyst will also need pelvic u/s outpatient. Rx norco add gabapentin. Pt instructed to follow up with pcp in 3-5 days. Patient Disposition: 01 HOME, SELF-CARE Condition: Stable Health Concerns: Post Hospitalization: new medications and changes needed to prevent readmission or further decline. Pt educated and given instructions on all concerns. Plan of Treatment: Continue with present treatment and follow up plan. Pt is to keep follow up appointment as instructed and take medications as ordered. Prescriptions: New gabapentin 100 mg Capsule 100 mg PO HS Qty: 30 RF: 0 temazepam 15 mg Capsule 15 mg PO HS MDD 1 tab PRN30 Days Qty: 30 RF: 0 hydrocodone-acetaminophen 7.5-325 mg Tablet 1 tab PO Q8H MDD 3 tablets PRN10 Days Qty: 30 RF: 0 Continued ibuprofen 800 mg tablet 800 mg PO Q8-10H RF: 0 venlafaxine 150 mg capsule,extended release 24hr 150 mg PO DAILY RF: 0 lisinopril 10 mg tablet 10 mg PO DAILY RF: 0 omeprazole 20 mg capsule,delayed release(DR/EC) 20 mg PO BID RF: 0 hydrochlorothiazide 25 mg tablet 25 mg PO DAILY RF: 0 Trokendi XR 50 mg capsule,extended release 24hr 50 mg PO DAILY RF: 0 Vraylar 1.5 mg capsule 1.5 mg PO DAILYHS RF: 0 buspirone 10 mg tablet 10 mg PO TID RF: 0 levothyroxine 175 mcg tablet 175 mcg PO DAILY RF: 0 amlodipine 10 mg tablet 10 mg PO DAILY RF: 0 Orders to Discharge Patient Discharge Orders: Discharge (Routine); Ordered 12/18/20 Ordered By: Ayden May Follow ups/Referrals Follow ups/Referrals: OSMAN POTTER [Primary Care Provider] - 3 days Instructions Stand Alone Forms: Excuse From Work or School, Precautions for COVID19, Patient Portal, Social Distancing
[2020-12-18 11:11] VITALS: BP 129/60
== END 2020-12-18 11:20 | disposition home or self-care (01) ==
LOC: ER 19:34 → ICU 19:34
PROVIDERS: ADMIT Internal Medicine; ATTEND Internal Medicine
DX: M51.37 Other intervertebral disc degeneration, lumbosacral region; Z86.16 Personal history of COVID-19; N83.202 Unspecified ovarian cyst, left side; M43.16 Spondylolisthesis, lumbar region; N39.498 Other specified urinary incontinence; E78.2 Mixed hyperlipidemia; U07.1 COVID-19; K21.00 Gastro-esophageal reflux disease with esophagitis, without bleeding; M54.5 Low back pain